=== PATIENT | female | born 1995 | race Hispanic/Latino ===

== ENCOUNTER 2017-08-11 01:23 | Day surgery (SDC) | payer OTHER, SELFPAY ==
[2017-08-11 02:08] LABS: #Eosinphils 0.1 thou/uL (0.0-0.7); #Lymphocytes 1.8 thou/uL (1.20-3.40); #Neutrophils 6.6 thou/uL (1.40-6.50); %Basophils 0.4 % (0.0-1.0); %Eosinophils 0.9 % (0.0-10.0); %Lymphocytes 19.2 % (21.0-51.0); %Monocytes 10.3 % (0.0-10.0); %Neutrophils 69.2 % (42.0-75.0); Hemoglobin 13.6 g/dL (12.0-16.0); Mean Corpuscular HGB CONC 35.1 g/dL (32.0-36.0); Mean Corpuscular Hemoglobin 31.5 pg (27.0-31.0); Mean Corpuscular Volume 89.7 fl (81.0-99.0); Mean Platelet Volume 8.2 fL (7.4-10.4); Platelet Count 215 thou/uL (130-400); RBC Distribution Width 10.7 % (11.5-14.5); Red Blood Cell (RBC) Count 4.32 mill/uL (4.20-5.40); White Blood Cell (WBC) Count 9.6 thou/uL (4.8-10.8)
[2017-08-11 02:08] LABS: Bilirubin Negative (Negative); Blood, Urine Negative (Negative); Clarity CLEAR (Clear); Glucose, Urine (Dipstick) Negative (Negative); Leukocyte Negative (Negative); Nitrite Negative (Negative); Protein, Urine (Dipstick) Negative (Neg-Trace); Specific Gravity, Urine 1.009 (1.002-1.036); pH, Urine 7.5 (5.0-9.0)
[2017-08-11 02:20] LABS: ALT (SGPT) 18 U/L (8-55); AST (SGOT) 18 U/L (5-34); Alkaline Phosphatase 58 U/L (40-150); Anion Gap 13 mmol/L (10-20); BUN (Urea Nitrogen) 10 mg/dL (7.0-18.7); Bilirubin, Total 0.6 mg/dL (0.2-1.2); Calc. Creatinine Clearance 0 mL/min (70-130); Calcium 9.5 mg/dL (7.8-10.44); Carbon Dioxide 22 mmol/L (22-29); Chloride 105 mmol/L (98-107); Estimated GFR-MDRD Greater than 90; Globulin 3.6 g/dL (2.4-3.5); Glucose 132 mg/dL (70-105); Potassium 3.5 mmol/L (3.5-5.1); Protein, Total 7.6 g/dL (6.0-8.3); Sodium 136 mmol/L (136-145)
[2017-08-11 02:25] LABS: CKMB 0.4 ng/mL (0-6.6); Troponin I Less than 0.010 ng/mL (< 0.028)
[2017-08-11] MEDS ORDERED: Fentanyl 100 MCG/2 ML VIAL ONE (02:45)
[2017-08-11 03:09] LABS: Pregnancy Test - Urine (BHCG) Negative (Negative); Pregu Control Background? CLEAR/WHITE (CLR/WHITE); Pregu Control Bar Appear? YES (CONTROL BAR)
[2017-08-11 03:10] LABS: Specific Gravity 1.009 (1.002-1.036)
[2017-08-11] MEDS ORDERED: HYDROmorphone 0.5 MG/0.5 ML SYRINGE ONE (05:30)
[2017-08-11] MEDS ORDERED: Levofloxacin 500 mg/D5W 100 ml Premix Bag ONE (06:35)
--- NOTE | 2017-08-11 07:32 | HP ---
HISTORY OF PRESENT ILLNESS: Radha Khan is a 22-year-old female who presents to the emergency [facility]uardo [facility] with several week history of intermittent epigastric right upper quadrant pain, back radiation, [place]. She has not been able to be fatty, greasy food. She is 2, para 1, [age] year old. 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 Her brother is with her. She has been evaluated in the emergency eduardo [facility] and white count is 9, hemoglobin 13. Liver function tests are normal. Ultrasound of the gallbladd er obtained revealing gallstones with shadowing and a bile duct of 5 mm. ALLERGIES: PENICILLIN. TOBACCO: None. ALCOHOL: Rarely. MEDICATIONS: None routinely. PAST SURGICAL HISTORY: Ureteral stent, urolithiasis. PAST MEDICAL HISTORY: Urolithiasis. REVIEW OF SYSTEMS: Ten point noncontributory. PHYSICAL EXAMINATION: VITAL SIGNS: Heart rate 76, respiratory rate 18, 120/74. HEENT: Unremarkable. Sclerae nonicteric. SKIN: Nonjaundiced. LUNGS: Clear to auscultation. CARDIAC: Regular rate and rhythm without murmur or gallop. ABDOMEN: Soft, tenderness in right upper quadrant, guarding, rebound. EXTREMITIES: Unremarkable. ASSESSMENT AND PLAN: Acute cholecystitis and cholelithiasis. Recommend laparoscopic cholecystectomy . Risk of infection, bleeding, visceral and biliary injury explained. She consents.
[2017-08-11] MEDS ORDERED: Acetaminophen 1,000 MG in Premix Bag 1 BAG IVPB SCH ×2 (07:45→08:45)
[2017-08-11] MEDS ORDERED: Scopolamine 1.5 mg/72 hour Patch TOP SCH (07:45)
--- NOTE | 2017-08-11 08:21 | RAD ---
PORTABLE CHEST ONE VIEW: Date: 08-11-17 Time: 3:51 a.m. History: Chest pain. FINDINGS: The heart size is normal. The lungs are expanded without focal areas of consolidation, pneumothoraces or pleural effusions. IMPRESSION: No acute process. POS: [facility]
[2017-08-11] MEDS ORDERED: Sodium Chloride 0.9% 1,000 ML IV SCH (08:45)
[2017-08-11] MEDS ORDERED: Ketorolac Tromethamine 30 MG/ML VIAL IVP SCH (08:45)
[2017-08-11] MEDS ORDERED: Ketorolac Tromethamine 30 MG/ML VIAL ONE (08:51)
--- NOTE | 2017-08-11 09:33 | ULT ---
PRELIMINARY REPORT/[facility]/EMERGENTY AFTER-HOURS PROCEDURE US Abdomen Limited, Right Upper Quadrant CLINICAL HISTORY: 22 years old, female; Pain and signs and symptoms; Constipation; Abdominal pain; Localized; Other: Ru q pain that radiates to chest TECHNIQUE: Real-time ultrasound of the abdomen with image documentation. Examination is focused on the right upper quadrant. COMPARISON: No relevant prior studies available. FINDINGS: Liver: Normal. No masses. Gallbladder: Multiple mobile gallstones and gallbladder distention. No gallbladder wall thickening or pericholecystic fluid. Positive sonographic Vazquez's sign elicited Common bile duct: 5 mm in caliber. No stones. No dilation. Pancreas: Not well visualized. Right kidney: Normal. No mass. No hydronephrosis. IMPRESSION: Mobile gallstones within a distended gallbladder. Positive sonographic Vazquez's sign. Correlate clini fatoumata for acute cholecystitis Thank you for allowing us to participate in the care of your patient. Dictated and Authenticated by: Jasvir Prakash MD 08/11/2017 5:50 AM Central Time ([place] & [place]) FINAL REPORT RIGHT UPPER QUADRANT ULTRASOUND: I agree with the preliminary report given by Dr. Prakash of [facility]. POS: [facility]
[2017-08-11] MEDS ORDERED: Bupivacaine HCl 0.5%/Epinephrine 1:200,000/PF 30 ml Vial ONE (09:44)
[2017-08-11] MEDS ORDERED: Fentanyl 250 MCG/5 ML VIAL ONE (09:51)
[2017-08-11] MEDS ORDERED: Promethazine HCl 25 MG/ML VIAL IM PRN (10:25)
[2017-08-11] MEDS ORDERED: Promethazine HCl 25 MG/ML VIAL SLOW IVP PRN (10:25)
[2017-08-11] MEDS ORDERED: Ondansetron HCl/PF 4 MG/2 ML Vial IVP PRN (10:25)
--- NOTE | 2017-08-11 11:38 | OP ---
DATE OF PROCEDURE: 08/11/2017 PREOPERATIVE DIAGNOSES: Acute chronic cholecystitis and cholelithiasis. POSTOPERATIVE DIAGNOSES: Acute chronic cholecystitis and cholelithiasis with hydrops of the gallblad graham. PROCEDURE: Laparoscopic video cholecystectomy, large stone obstructing the gallbladder outlet with h ydrops. SURGEON: Dr. Regan Qiu ANESTHESIA: General. Local 0.5% Marcaine with epinephrine, 30 mL. FINDINGS: Normal liver, grossly normal abdominal cavity otherwise. PROCEDURE IN DETAIL: The patient was taken to the operating room where under general anesthesia the abdomen was prepared with ChloraPrep, draped in routine fashion. Local anesthetic infiltrated in the skin and subcutaneous tissue about each port site. Infraumbilical incision made and pneumoperitoneu m to 15 mmHg obtained with the Veress needle placing with a 5 port and video laparoscope inserted. R ight subxiphoid incision made and 11 port placed. Right subcostal incision made mid clavicular anter ior axillary lines and 5 ports placed. Gallbladder was distended, edematous with thickened wall with gallbladder obstructing the gallbladder outlet. Fundus of gallbladder grasped and reflected cephala d. Liver appeared to be normal. Infundibulum grasped and reflected laterally. Cystic artery and du ct dissected free. Critical view obtained. Cystic artery duct doubly clipped proximally, divided. The gallbladder dissected free from liver bed obtaining good hemostasis prior to division of final pe ritoneal attachments. Reinforce it placed with 11 port subxiphoid site and the gallbladder obstructi ng stone grasped with ring forceps were brought out through the incision. Gallbladder opened and sto amber decompressed removing the gallbladder and stones submitted to Pathology. Good hemostasis ensured in the gallbladder bed and obtained with the cautery. Irrigant and pneumoperitoneum evacuated. All instruments removed and all skin incisions approximated with interrupted subdermal 4-0 Monocryl and DermaGlue applied.
[2017-08-11] MEDS ORDERED: Lidocaine 1% PF 5 ML VIAL ONE (11:53)
[2017-08-11] MEDS ORDERED: Ondansetron HCl/PF 4 MG/2 ML Vial ONE (11:53)
[2017-08-11] MEDS ORDERED: Dexamethasone 20 MG/5 ML VIAL ONE (11:53)
[2017-08-11] MEDS ORDERED: Succinylcholine Chloride 20 MG/ML 10 ml SYRINGE FS ONE (11:53)
[2017-08-11] MEDS ORDERED: PROPOFOL 200 MG/20 ML VIAL ONE (11:53)
[2017-08-11] MEDS ORDERED: Glycopyrrolate 0.2 MG/ML 5 ML SYRINGE ONE (11:53)
[2017-08-11] MEDS ORDERED: Promethazine HCl 25 MG/ML VIAL ONE (12:50)
[2017-08-11] MEDS ORDERED: Morphine 4 MG/ML VIAL ONE (12:50)
== END 2017-08-11 13:50 | disposition home or self-care (01) ==
LOC: ERS 01:23 → SDC 06:00
PROVIDERS: ATTEND Specialist
PROC: 0FT44ZZ Resection of Gallbladder, Percutaneous Endoscopic Approach (ICD-10-PCS; principal; 2017-08-11)
DX: K80.12 Calculus of gallbladder with acute and chronic cholecystitis without obstruction (principal); K82.1 Hydrops of gallbladder; Z88.0 Allergy status to penicillin
CPT/HCPCS: 36415; 71045; 76705; 80053; 81003; 81025; 82553; 84484; 85025; 88304; 93005; 96361; 96365; 96367; 96374; 96375; J0131; J0670; J1100; J1170; J1885; J1956; J2001; J2270; J2405; J2550; J2704; J3010

== ENCOUNTER 2018-06-08 22:36 | Emergency (ER) | payer SELFPAY ==
[2018-06-08 23:21] LABS: #Basophils 0.1 thou/uL (0.0-0.2); #Eosinphils 0.1 thou/uL (0.0-0.7); #Lymphocytes 3.8 thou/uL (1.20-3.40); #Monocytes 0.7 thou/uL (0.11-0.59); #Neutrophils 2.9 thou/uL (1.40-6.50); %Basophils 1.5 % (0.0-1.0); %Lymphocytes 49.6 % (21.0-51.0); %Monocytes 9.7 % (0.0-10.0); %Neutrophils 38.3 % (42.0-75.0); Hemoglobin 14.1 g/dL (12.0-16.0); Mean Corpuscular HGB CONC 33.6 g/dL (32.0-36.0); Mean Corpuscular Hemoglobin 29.1 pg (27.0-31.0); Mean Corpuscular Volume 86.7 fL (78.0-98.0); Mean Platelet Volume 9.6 fL (7.4-10.4); Platelet Count 183 thou/uL (130-400); RBC Distribution Width 11.6 % (11.5-14.5); Red Blood Cell (RBC) Count 4.83 mill/uL (4.20-5.40); White Blood Cell (WBC) Count 7.7 thou/uL (4.8-10.8)
[2018-06-08 23:33] LABS: ALT (SGPT) 14 U/L (8-55); AST (SGOT) 13 U/L (5-34); Albumin 4.3 g/dL (3.5-5.0); Alkaline Phosphatase 48 U/L (40-150); Anion Gap 14 mmol/L (10-20); BUN (Urea Nitrogen) 11 mg/dL (7.0-18.7); Bilirubin, Total 0.3 mg/dL (0.2-1.2); Calc. Creatinine Clearance 0 mL/min (70-130); Calcium 9.8 mg/dL (7.8-10.44); Carbon Dioxide 24 mmol/L (22-29); Chloride 106 mmol/L (98-107); Estimated GFR-MDRD Greater than 90; Globulin 3.1 g/dL (2.4-3.5); Glucose 95 mg/dL (70-105); Potassium 3.6 mmol/L (3.5-5.1); Protein, Total 7.4 g/dL (6.0-8.3); Sodium 140 mmol/L (136-145)
[2018-06-08 23:37] LABS: Bilirubin Negative (Negative); Blood, Urine Trace (Negative); Clarity Clear (Clear); Glucose, Urine (Dipstick) Negative (Negative); Leukocyte Small (Negative); Nitrite Negative (Negative); Protein, Urine (Dipstick) Negative (Neg-Trace); Urobilinogen 0.2 mg/dL (0.2-1.0)
[2018-06-08 23:39] LABS: Bacteria/HPF None Seen HPF (None Seen); Hyaline Casts/LPF 0-3 HYALINE CAST LPF (0-3 Hyaline); RBC/HPF 0-3 HPF (0-3); Squamous Epithelial 0-3 HPF (0-3); WBC/HPF 0-3 HPF (0-3)
[2018-06-08 23:40] LABS: Pregnancy Test - Urine (BHCG) Negative (Negative); Pregu Control Background? CLEAR/WHITE (CLR/WHITE); Pregu Control Bar Appear? YES (CONTROL BAR)
[2018-06-08] MEDS ORDERED: Ketorolac Tromethamine 30 MG/ML VIAL ONE (23:40)
--- NOTE | 2018-06-08 23:59 | CT ---
CT STONE PROTOCOL 06/08/18 HISTORY: Right flank pain. FINDINGS: Absence of oral and IV contrast reduces the sensitivity of the exam particularly for the evaluation o f solid organs and bowel. The lung bases are clear. No free air or free fluid is seen in the abdomen or pelvis. The patient is post cholecystectomy. A normal appearing appendix is noted. The uterus and ovaries are present. There is a cyst in the right ovary. There are small bilateral renal calculi. No calculi seen in the ureters or the urinary bladder. No hy droureteronephrosis noted on either side. No acute osseous abnormality is seen. The aorta is of normal caliber. IMPRESSION: Nonobstructing bilateral tiny renal calculi. POS: [facility]
== END 2018-06-09 00:36 | disposition home or self-care (01) ==
LOC: SCSER 22:36
DX: N83.201 Unspecified ovarian cyst, right side (principal); Z87.891 Personal history of nicotine dependence
CPT/HCPCS: 74176; 80053; 81003; 81015; 81025; 85025; 96372; J1885

== ENCOUNTER 2023-07-09 14:17 | Outpatient (CLI) | payer MEDICAID | END 2023-07-09 14:18 | disposition home or self-care (01) | LOC: ULT 14:17 | PROVIDERS: ATTEND Nurse Practitioner Women's Health | DX: R10.2 Pelvic and perineal pain (principal); N85.4 Malposition of uterus | CPT/HCPCS: 76856 ==